=== PATIENT | male | born 1995 | race Caucasian/White ===

== ENCOUNTER → 2016-09-20 | Outpatient (CLI) | payer BC ==
[~2016-09-20] MED LIST: NO HOME MEDICATIONS
== END ==
LOC: COL.RAD 07:27
DX: R10.84 Generalized abdominal pain (principal)

== ENCOUNTER 2017-06-16 21:47 | Emergency (ER) | payer BC ==
[~2017-06-16] VITALS: Ht 180.3 cm; Wt 81.8 kg
[2017-06-16 21:54] VITALS: BP 145/66; TEMP 97.9
[2017-06-17 00:08] VITALS: PULSE 71
== END 2017-06-17 00:09 | disposition home or self-care (01) ==
LOC: COL.ER 21:47
DX: S93.402A Sprain of unspecified ligament of left ankle, initial encounter (principal); X50.1XXA Overexertion from prolonged static or awkward postures, initial encounter; Y93.67 Activity, basketball